=== PATIENT | male | born 1990 | race Two or more races ===

== ENCOUNTER 2020-05-09 10:51 | Emergency (ER) | payer SELFPAY ==
[~2020-05-09] VITALS: Ht 167.6 cm; Wt 83.9 kg
[2020-05-09 10:55] VITALS: BP 143/83
[2020-05-09] MEDS ORDERED: LIDOCAINE 1%-EPI 1:100,000 20 ML VIAL TP ONE (11:00)
--- NOTE | 2020-05-09 11:17 | NUR ---
patient came in to the er c/o lac on the LFA s/p metal fell off his arm, 5/10 pain scale, no tdap. On room air, breathing evenly and unlabored. Kept comfortable, will continue to monitor accordingly.
--- NOTE | 2020-05-09 11:20 | NUR ---
SUTURING DONE BY .
[2020-05-09] MEDS ORDERED: IBUP-1955 PO (11:24)
--- NOTE | 2020-05-09 11:25 | NUR ---
WOUND DRESSING DONE BY [employer].
--- NOTE | 2020-05-09 11:32 | NUR ---
Patient discharged to home in stable condition. Written and verbal after care instructions given. Patient verbalizes understanding of instruction.
== END 2020-05-09 11:39 | disposition home or self-care (01) ==
LOC: ER 10:56
DX: S51.812A Laceration without foreign body of left forearm, initial encounter (principal); Z79.899 Other long term (current) drug therapy; W18.39XA Other fall on same level, initial encounter; Y93.89 Activity, other specified; Y92.89 Other specified places as the place of occurrence of the external cause; Y99.8 Other external cause status
CPT/HCPCS: 12002; 99282; A6403

== ENCOUNTER 2020-05-11 16:08 | Emergency (ER) | payer SELFPAY ==
[~2020-05-11] VITALS: Ht 167.6 cm; Wt 83.9 kg
[~2020-05-11 16:08] MED LIST: IBUP-1955 PO
[2020-05-11 16:49] VITALS: BP 142/93
== END 2020-05-11 17:21 | disposition home or self-care (01) ==
LOC: ER 16:10
DX: S61.512D Laceration without foreign body of left wrist, subsequent encounter (principal); Z60.2 Problems related to living alone; Z79.899 Other long term (current) drug therapy; X58.XXXD Exposure to other specified factors, subsequent encounter